=== PATIENT | female | born 1950 | race Two or more races ===

== ENCOUNTER → 2025-05-17 | Outpatient (CLI) | payer MEDICARE, MEDICAID, SELFPAY ==
--- NOTE | 2025-05-17 08:00 | XR_ITS ---
Examination: CT thoracic spine, without contrast. 2-D sagittal reconstructions. 2-D coronal reconstructions. 3-D reconstructions. Date and time of exam:May 17, 2025, 0810 hours INDICATIONS: Back injury one year ago, history fractures T9, T10 CTDI: vol (mGy):26.2 DLP: (mGycm):843 Technique: Multiple 1.25 mm axial sections of the thoracic spine without intravenous contrast have been obtained. 2-D sagittal and coronal reconstructions have been obtained. 3-D reconstructions have been obtained. Low dose protocols were performed. One or more of the following dose reduction techniques were used; automated exposure control, adjustment of the mA and/or KV according to patient size, use of iterative reconstruction technique. Findings: Severe osteopenia Chronic T10 compression fracture, reduction in height 40% Satisfactory alignment of this vertebral body No acute thoracic fracture Pedicles and laminae appear intact IMPRESSION: Moderate chronic compression fracture T10
== END | disposition home or self-care (01) ==
PROVIDERS: Referring Provider Family Medicine; Visit Provider Family Medicine
DX: M48.54XA Collapsed vertebra, not elsewhere classified, thoracic region, initial encounter for fracture (principal)
CPT/HCPCS: 72128

== ENCOUNTER 2025-08-11 16:48 | Emergency (ER) | payer MEDICARE, MEDICAID, SELFPAY ==
--- NOTE | 2025-08-11 16:59 | XR_ITS ---
Examination: CT brain head without contrast. 2-D sagittal coronal reconstructions Date and time of exam: August 11, 2025, 1724 hours INDICATIONS: Onset dizziness today with left eye vision loss CTDI: vol (mGy): 53.8 DLP: (mGycm): 1050 Technique: Multiple CT axial sections of the brain have been obtained, 5 mm slice thickness. Contrast has not been administered. 2-D sagittal, coronal reconstructions have been obtained Low dose protocols were performed. One or more of the following dose reduction techniques were used; automated exposure control, adjustment of the mA and/or KV according to patient size, use of iterative reconstruction technique. Findings: No significant ventricular enlargement. 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 No mass effect or midline shift Basal cisterns are not remarkable. Fourth ventricle is midline. Cranial vault intact. Impression: Negative for acute hemorrhage, mass effect or midline shift Given the patient's presentation, consider brain MRI MRA without contrast, stroke protocol, follow-up
[2025-08-11 18:02] VITALS: BP 209/77; PULSE 93; RESP 20; TEMP 36.4; O2SAT 95
[2025-08-11 18:03] VITALS: BMI 34.5
--- NOTE | 2025-08-11 18:54 | EDRME_ITS ---
Rapid Medical Screening Exam [facility] Arrival date/time: 08/11/25 16:48 75F with history of HTN and DM presents to ED with 2 days of complete L eye vision loss. Patient states she saw an emergency room specialist today who states likely due to high BP and told her to go to ED. Patient denies weakness, dizziness, AMS, and behavior changes (confirmed with daughter). Chief Complaint: Eye Problems Time Seen by Provider: 08/11/25 18:39 Vital signs: Vital Signs Temperature 97.5 F 08/11/25 18:02 Pulse Rate 93 08/11/25 18:02 Respiratory Rate 20 08/11/25 18:02 Blood Pressure 209/77 H 08/11/25 18:02 Pulse Oximetry (%) 95 08/11/25 18:02 Oxygen Delivery Method Room Air 08/11/25 18:02 Exam: Normal pupil response and EOM. Mild nystagmus. Clinical Impression: retinal hemorrhage/occlusion vs orbital detachment vs CVA/TIA
--- NOTE | 2025-08-11 18:54 | XR_ITS ---
Examination: CTA carotids with intravenous contrast CTA brain, head with intravenous contrast. 2-D sagittal, coronal reconstructions. 3-D reconstructions. Exam date and time: August 11, 2025, 2045 hours INDICATIONS: Left eye vision loss today CTDI: vol (mGy) 29.08 DLP: (mGycm) 508 Technique: Multiple CTA axial brain, head carotid images post intravenous contrast injection 75 cc, [id number] 2-D sagittal, coronal reconstructions. 3-D reconstructions, 3-D post processing including vascular maximum intensity projection images. Low dose protocols were performed. One or more of the following dose reduction techniques were used; automated exposure control, adjustment of the mA and/or KV according to patient size, use of iterative reconstruction technique. Findings: Multiple thyroid nodules, the largest 15 mm There is no filling of the proximal and midportion right vertebral artery which in the distal portion is atretic No significant common carotid carotid bifurcation or internal carotid artery stenoses although there is heavy calcification at the carotid bifurcations The intracranial vertebral arteries basilar artery and posterior cerebral branches fill Juxtasellar supraclinoid portions internal carotid arteries M1 segments middle cerebral artery trifurcation vessels and anterior cerebral arteries fill There is no diagnostic filling of the ophthalmic arteries IMPRESSION: Multiple thyroid nodules No filling of the proximal and mid right vertebral artery, left vertebral artery in the neck carotid arteries demonstrate no critical stenoses No cerebral large vessel arterial occlusions Recommend carotid vertebral Doppler sonography follow-up to assess for retrograde flow in the right vertebral artery
[2025-08-11 19:35] LABS: Basophils # (Auto) 0.0 Thou/mm3 (0.0-0.2); Basophils % (Auto) 0 % (0-2.5); Eosinophils # (Auto) 0.1 Thou/mm3 (0.0-0.5); Eosinophils % (Auto) 2 % (0-10); Hematocrit 35.5 % (36.0-46.0); Hemoglobin 11.8 g/dL (12.0-16.0); Immature Granulocytes Auto 0.02 Thou/mm3 (0.00-0.00); Lymphocytes # (Auto) 2.1 Thou/mm3 (1.0-4.8); Lymphocytes % (Auto) 29 % (10-50); Mean Corpuscular HGB Conc 33.2 g/dl (31.0-37.0); Mean Corpuscular Hemoglobin 28.8 pg (25.0-35.0); Mean Corpuscular Volume 87 fL (80-100); Monocytes # (Auto) 0.4 Thou/mm3 (0.0-0.8); Monocytes % (Auto) 6 % (0-12); Neutrophils # (Auto) 4.6 Thou/mm3 (1.8-7.7); Neutrophils % (Auto) 64 % (37-80); Nucleated Red Blood Cell # 0.00 Thou/mm3 (0.00-0.00); Nucleated Red Blood Cell % 0 /100 WBC (0); Platelet Count 266 Thou/mm3 (140-440); RDW Standard Deviation 42.7 fL (36.4-46.3); Red Blood Count 4.10 Miln/mm3 (4.00-5.20); White Blood Count 7.2 Thou/mm3 (3.6-11.0)
[2025-08-11 19:53] LABS: INR 1.0 (0.9-1.3); Partial Thromboplastin Time 28.7 Seconds (22.0-36.0); Prothrombin Time 10.3 Seconds (9.0-12.2)
[2025-08-11 20:00] LABS: Alanine Aminotransferase 23 U/L (10-49); Albumin, Serum 4.1 gm/dL (3.4-4.8); Albumin/Globulin Ratio 1.7 (1.2-2.2); Alkaline Phosphatase 137 U/L (46-116); Anion Gap 8 (7-16); Aspartate Amino Transferase 18 U/L (0-34); BUN/Creatinine Ratio 17 Ratio (12-20); Bilirubin,Total 0.3 mg/dL (0.3-1.2); Blood Urea Nitrogen 32 mg/dL (9-23); Calcium 9.0 mg/dL (8.3-10.6); Calcium (Corrected) 9.0 mg/dL (8.5-10.1); Carbon Dioxide 24.7 mMol/L (20.0-31.0); Chloride 103 mMol/L (98-107); Creatinine (Component) 1.9 mg/dL (0.6-1.3); Estimated Creatinine Clearance 27.4 mL/min (>60); Globulin 2.4 gm/dL (2.3-3.5); Osmolality,Calculated 301 (275-295); Potassium 5.1 mMol/L (3.4-5.1); Sodium 136 mMol/L (136-145); Total Protein 6.5 gm/dL (5.7-8.2); eGFR 27 See Note
[2025-08-11 20:03] LABS: Glucose 521 mg/dL (74-106)
[2025-08-11 21:07] VITALS: BP 238/91; PULSE 99; RESP 20; O2SAT 98
--- NOTE | 2025-08-11 21:17 | PD.EDEYE ---
ED Eye Problem RME/HPI General Chief complaint: Eye Problems Stated complaint: L EYE VISION LOSS, HIGH BP, SENT BY OPTHALMOLOGIST Time Seen by Provider: 08/11/25 18:39 Arrival date/time: 08/11/25 16:48 RME / HPI RME / HPI Narrative: 08/11/25 16:48 75F with history of HTN and DM presents to ED with 2 days of complete L eye vision loss. Patient states she saw an cardiovascular specialist today who states likely due to high BP and told her to go to ED. Patient denies weakness, dizziness, AMS, and behavior changes (confirmed with daughter). DR. MILLS MAIN ED EVALUATION: 75 y/o female with Hx of HTN and IDDM presents to ED c/o vision loss of the left eye x 11 AM yesterday. Patient reports the ability to see light with dark streaks, but nothing else. Patient was evaluated by Road Hogger Operator and was informed that symptoms were attributed to consistent blood pressure elevation. Per granddaughter, patient's systolic blood pressure has been consistently elevated in the 200 range for at least 3 months now. Initially, patient was taking Valsartan 160 mg once a day, and was recently increased to twice a day at the beginning of this month. Patient has been in ED for 4 hours prior to my initial evaluation. Denies history of stroke. No other complaints. Exam: Normal pupil response and EOM. Mild nystagmus. Impression: retinal hemorrhage/occlusion vs orbital detachment vs CVA/TIA Related Data Previous Rx's ?Medication ?Instructions ?Recorded acetaminophen 300 mg-codeine 30 mg 1 tab PO Q6H PRN pain #15 tabs 05/23/22 tablet ibuprofen 600 mg tablet 600 mg PO Q6H PRN pain #30 tabs 05/23/22 Allergies Allergy/AdvReac Type Severity Reaction Status Date / Time No Known Allergies Allergy Verified 08/11/25 16:53 Review of Systems Review of Systems Systems Reviewed: All systems reviewed, normal except as documented Past Medical History Past Medical History CARDIAC: Positive Hypertension ENDOCRINE: Positive Diabetes Mellitus Type 2 ED Exam Narrative Physical exam: Generally patient is alert and in no obvious distress funduscopic exam to the right eye showed no vitreous hemorrhage into the left eye no vitreous hemorrhage. Blood vessels can be seen to the posterior surfaces of bilateral eyes. There is nothing to suggest central retinal vein or central retinal artery occlusion. Patient has light perception to the left eye. Patient has palpable temporal pulses bilaterally without tenderness to palpation. Heart regular rate and rhythm, lungs clear to auscultation equal bilaterally, abdomen is obese soft nondistended nontender neurologic exam showed blurring of vision to the left eye without focal motor deficit. No ataxia. Course Quality Measures none Orders Category Date Time Status CT Screening NOW Care 08/11/25 18:54 Active Insert IV NOW Care 08/11/25 18:[address] angio carotid w head w Stat Exams 08/11/25 18:[address] head/brain wo con Stat Exams 08/11/25 16:59 Completed CBC Stat Lab 08/11/25 19:20 Completed CMP [Comprehensive Metabolic Panel] Stat Lab 08/11/25 19:20 Completed INR [Prothrombin Time with INR] Stat Lab 08/11/25 19:20 Completed PTT [Partial Thromboplastin Time] Stat Lab 08/11/25 19:20 Completed Insulin Regular Med 08/11/25 21:14 Discontinued 12 unit IV X1 ONE Labetalol* IV [Trandate IV] Med 08/11/25 21:14 Discontinued 20 mg IVP X1 ONE Vital Signs Vital signs: Vital Signs Temperature 97.5 F 08/11/25 18:02 Pulse Rate 93 08/11/25 18:02 Respiratory Rate 20 08/11/25 18:02 Blood Pressure 209/77 H 08/11/25 18:02 Pulse Oximetry (%) 95 08/11/25 18:02 Oxygen Delivery Method Room Air 08/11/25 18:02 Eye MDM Narrative MDM Narrative:: Scribe Attestation: Ileana Lacy am scribing for and in the presence of Dr. Mills. Provider Notation: Although this document has been carefully reviewed, there may still be some phonetic and other typographical errors. These errors are purely grammatical due to imperfections in the software program and should not be construed in any way to compromise the substance of the patient's medical care during this visit. Patient already saw her earth observations chief scientist today. The earth observations chief scientist stated to her that the decrease in vision is due to her poorly controlled hypertension. That is the reason why the patient was referred to the emergency room's for better control of her high blood pressure due to the fact that her systolic blood pressure was 209 in the ophthalmology office. It is very similar here tonight. Blood sugar was also 501. Patient received labetalol 20 mg IV which helped decrease the blood pressure to 164/88. She normally takes losartan 160 mg twice a day. She has been compliant with this medication however it just recently got increased from once a day to twice a day. This is a new change. Patient received 12 units of regular insulin IV which brought the blood sugar down to 375. Patient is not diabetic ketoacidosis. Head CT is negative. CT angio of the head and neck showed poor filling of the proximal and mid right vertebral arteries but with complete filling of intracranial vertebral and carotid arteries. There was no large vessel occlusion. Based on the physical exam, I do not believe this patient have a central retinal vein or central retinal artery occlusion. This decrease in vision started yesterday. Patient was already seen by her earth observations chief scientist today. Patient is to continue all current medications. Follow-up with her earth observations chief scientist. Return to ER as needed or if condition worsens. Patient data External records reviewed:: [facility] previous records (Reviewed prior ED records from 05/23/22. Patient was seen for Closed fracture of right proximal humerus.) Clinical information provided by:: patient and family Social determinants that could affect healthcare access:: none Patient has the following chronic illnesses:: Type II DM, HTN How is presenting disease/condition affected by chronic disease/condition?: exacerbated by Evaluation data The following diagnostics were reviewed and interpreted by me:: lab results and radiology exam(s) Lab and/or radiology exams considered but not ordered:: None Interpretation Summary: RADIOLOGY Head/Brain CT: Findings: No significant ventricular enlargement. 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 No mass effect or midline shift Basal cisterns are not remarkable. Fourth ventricle is midline. Cranial vault intact. Impression: Negative for acute hemorrhage, mass effect or midline shift Given the patient's presentation, consider brain MRI MRA without contrast, stroke protocol, follow-up Head/Neck CTA: Findings: Multiple thyroid nodules, the largest 15 mm There is no filling of the proximal and midportion right vertebral artery which in the distal portion is atretic No significant common carotid carotid bifurcation or internal carotid artery stenoses although there is heavy calcification at the carotid bifurcations The intracranial vertebral arteries basilar artery and posterior cerebral branches fill Juxtasellar supraclinoid portions internal carotid arteries M1 segments middle cerebral artery trifurcation vessels and anterior cerebral arteries fill There is no diagnostic filling of the ophthalmic arteries IMPRESSION: Multiple thyroid nodules No filling of the proximal and mid right vertebral artery, left vertebral artery in the neck carotid arteries demonstrate no critical stenoses No cerebral large vessel arterial occlusions Recommend carotid vertebral Doppler sonography follow-up to assess for retrograde flow in the right vertebral artery Medications / Prescriptions Medications or Prescriptions considered but not ordered:: None Medication administrations:: Medication Administration History Discontinued Medications Insulin Human Regular (Insulin Hum Regular 1 Unit/0.01 Ml (Per Unit)) 12 unit IV X1 ONE Stop: 08/11/25 21:15 Last Admin: 08/11/25 21:31 Dose: 12 unit Documented By: MATT Co-signed By: JHOANA Labetalol HCl (Labetalol Inj 5 Mg/Ml Vial 4 Ml) 20 mg IVP X1 ONE Stop: 08/11/25 21:15 Last Admin: 08/11/25 21:30 Dose: 20 mg Documented By: MATT See above if any. Consultations Consultation(s) initiated? (list below): No Diagnosis Eye Problem Differential Diagnosis: conjunctivitis, acute iritis, hyphema, subconjunctival hemorrhage and glaucoma Most likely diagnosis given after review of the tests above:: None Admission Indicated Admission indicated?: not indicated Explain why admission is indicated or not indicated:: Patient does not meet admission criteria. Admission Request Was there a request for admission?: No Disposition Plan Disposition Plan: Discharge Discharge Attestation Discharge Attestation: The patient and all family members were given an opportunity to ask questions and understood the discharge instructions. Discharge instructions specifically effects, indications for sooner follow up or return to the emergency department, and the expected course of current diagnosis. Patient condition: Stable Discharge Plan Plan Patient Disposition: HOME (Self Care) Prescriptions/Referrals Prescriptions/Med Rec: No Action ibuprofen 600 mg tablet 600 mg PO Q6H PRN (Reason: pain) Qty: 30 0RF acetaminophen-codeine 300-30 mg tablet 1 tab PO Q6H PRN (Reason: pain) Qty: 15 0RF Referrals: Joshua Cole PA-C [Primary Care Provider] - In 1 week Problem List Clinical Impression: Blurred vision, left eye, Poorly-controlled hypertension, Poorly controlled diabetes mellitus Patient/Caregiver Discharge Instructions Education Materials: ED Diabetes- Overview, ED Hypertension, Established Additional Instructions: Continue current medications at this time. Follow-up with your earth observations chief scientist. Return to ER as needed or if condition worsens. Print Language: Indonesian Stand Alone Forms: [facility] Award Info., Patient Portal Info Letter
[2025-08-11] MEDS: INSULIN HUM REGULAR 1 UNIT/0.01 ML (PER UNIT) 12 UNIT IV (21:31)
[2025-08-11 21:42] VITALS: BP 169/75; PULSE 67
[2025-08-11 22:07] VITALS: PULSE 70
== END 2025-08-11 22:08 | disposition home or self-care (01) ==
PROVIDERS: Physician Assistant; Emergency Provider Emergency Medicine; PCP Physician Assistant
DX: H53.8 Other visual disturbances (principal); E11.65 Type 2 diabetes mellitus with hyperglycemia; I10 Essential (primary) hypertension; E04.2 Nontoxic multinodular goiter
CPT/HCPCS: 36415; 70450; 70496; 70498; 80053; 85025; 85610; 85730; 96374; 99283; A4649; J1815; J1920; Q9967